=== PATIENT | male | born 1945 | race Caucasian/White ===

== ENCOUNTER 2017-05-08 19:30 | Outpatient (CLI) | payer MEDICARE | END 2017-05-08 19:31 | disposition home or self-care (01) | LOC: SLEEPLAB 19:30 | PROVIDERS: ATTEND Family Medicine | DX: G47.33 Obstructive sleep apnea (adult) (pediatric) (principal); R06.83 Snoring; I11.0 Hypertensive heart disease with heart failure; I50.9 Heart failure, unspecified; E11.9 Type 2 diabetes mellitus without complications; R51 Headache; R53.83 Other fatigue | CPT/HCPCS: 95811 ==

== ENCOUNTER 2017-08-09 09:43 | Outpatient (CLI) | payer MEDICARE ==
[~2017-08-09 09:43] MED LIST: Gadobenate Dimeglumine 529 MG/1 ML (20ML VIAL) ONE
--- NOTE | 2017-08-09 14:12 | MRI ---
MRI LUMBAR SPINE WITH AND WITHOUT CONTRAST: 08/09/2017 HISTORY: Prior lumbar spine surgery. Chronic back pain. COMPARISON: 03/13/2016 TECHNIQUE: Multiplanar, multisequence MR imaging of the lumbar spine provided with and without contrast. FINDINGS: The sagittal STIR imaging demonstrates no focal area of osseous marrow edema. Lumbar vertebral body height and alignment are normal. Assuming five lumbar type vertebral bodies, the conus medullaris terminates at L1. T12-L1: Intervertebral disk height and signal intensity are within normal limits. There is mild pedro ateral facet hypertrophy. No significant central canal or neural foraminal stenosis. L1-L2: Mild bilateral facet hypertrophy and hypertrophy of the ligamentum flavum, right greater than left. Mild anterior osteophyte formation noted on the left. Intervertebral disk height and signal intensity are within normal limits with no significant central canal or neural foraminal stenosis. L2-L3: Mild bilateral facet hypertrophy. Anterior osteophyte formation noted. No significant centr al canal or neural foraminal stenosis. L3-L4: Mild bilateral facet hypertrophy. Mild anterior osteophyte formation. There is disk desicca tion and minimal disk bulge with no central canal or neural foraminal stenosis. L4-L5: There is mild disk bulge. There are postoperative laminectomy changes. There is mild disk s pace narrowing and disk desiccation with facet hypertrophy noted, right greater than left. There is moderate/severe right neural foraminal stenosis. There is mild left neural foraminal stenosis. No c entral canal stenosis. L5-S1: Prominent bilateral facet hypertrophy present, right greater than left. Mild-moderate bilate ral neural foraminal stenosis. No central canal stenosis. The imaged retroperitoneal structures appear grossly unremarkable. There is ectasia of the infrarenal abdominal aorta with no evidence for aneurysm. The post contrast imaging demonstrates mild enhancement involving the soft tissues posterior to the thecal sac, at the L4-L5 level, suggesting postoperative scar. No abnormal enhancement is seen involving the nerve root s of the cauda equina, the intervertebral disks, or the imaged osseous structures. No significant interval change noted when compared to the 03/13/2016 exam. There is enhancement of the facet joint on the right, at L4-L5, evidence of degenerative enhancement. This is also stable when compared to the 03/13/2016 exam. IMPRESSION: Multilevel degenerative changes noted within the lumbar spine. The most significant finding is neura l foraminal stenosis at L4-L5 and at L5-S1, right greater than left, most significant at the L4-L5 le griselda. POS: ABHISHEK
== END 2017-08-09 09:44 | disposition home or self-care (01) ==
LOC: SCSMRI 09:43
PROVIDERS: ATTEND Family Medicine
DX: M54.5 Low back pain (principal); M47.896 Other spondylosis, lumbar region; M99.53 Intervertebral disc stenosis of neural canal of lumbar region; M99.54 Intervertebral disc stenosis of neural canal of sacral region
CPT/HCPCS: 72158; A9579

== ENCOUNTER 2018-08-14 00:04 | Outpatient (CLI) | payer MEDICARE ==
[2018-08-14 12:16] LABS: Mean Corpuscular HGB CONC 33.6 g/dL (32.0-36.0); Mean Corpuscular Hemoglobin 34.5 pg (27.0-31.0); Mean Platelet Volume 8.6 fL (7.4-10.4); Platelet Count 269 thou/uL (130-400); RBC Distribution Width 13.3 % (11.5-14.5); Red Blood Cell (RBC) Count 3.77 mill/uL (4.70-6.10); White Blood Cell (WBC) Count 9.5 thou/uL (4.8-10.8)
[2018-08-14 12:38] LABS: Anion Gap 13 mmol/L (10-20); BUN (Urea Nitrogen) 26 mg/dL (8.4-25.7); Calc. Creatinine Clearance 0 mL/min (70-130); Calcium 9.1 mg/dL (7.8-10.44); Carbon Dioxide 23 mmol/L (23-31); Chloride 106 mmol/L (98-107); Estimated GFR-MDRD 45; Glucose 178 mg/dL (83-110); Potassium 3.9 mmol/L (3.5-5.1); Sodium 138 mmol/L (136-145)
== END 2018-08-14 00:05 | disposition home or self-care (01) ==
LOC: LABBT 00:04
PROVIDERS: ATTEND Neurological Surgery
DX: Z01.818 Encounter for other preprocedural examination (principal); M48.061 Spinal stenosis, lumbar region without neurogenic claudication
CPT/HCPCS: 80048; 85027; 93005; 93010

== ENCOUNTER 2018-08-14 08:10 | Outpatient (CLI) | payer MEDICARE ==
--- NOTE | 2018-08-14 13:59 | MRI ---
MRI LUMBAR SPINE WITH AND WITHOUT CONTRAST: Technique: Multiplanar, multisequential imaging of the lumbar spine obtained. Post contrast images we re obtained with IV MultiHance administration. Indication: Lumbar spinal stenosis. Back pain. Comparison: MRI lumbar spine 08-09-17. FINDINGS: Lumbar vertebrae maintain normal body height and alignment. The disc spaces are preserved although degenerative disc changes are seen at the L5-S1 level. Post-op erative changes are noted posteriorly at L4-5 and L5-S1 with laminectomy change. Post-operative signa l changes are seen posteriorly in the operative bed at these levels, stable from the prior study. L1-2: No significant disc bulge or protrusion. Mild facet hypertrophy without significant canal or fo raminal stenosis. L2-3: Mild disc bulge. Facet hypertrophy is more prominent. Mild central canal stenosis, unchanged fr om prior exam. L3-4: Mild disc bulge. Facet hypertrophy. Mild central canal stenosis, stable from prior exam. L4-5: Mild disc bulge. Prominent facet hypertrophy. Mild central canal stenosis. Bilateral foraminal stenosis secondary to diffuse disc bulge and facet hypertrophy. L5-S1: Minimal disc bulge with facet hypertrophy and post op changes. Mild central canal stenosis. Bi lateral foraminal stenosis. Findings appear stable from prior exam. IMPRESSION: Mild central canal stenosis and bilateral foraminal stenosis at L4-5 and L5-S1 again noted as describ ed above. POS: ABHISHEK
== END 2018-08-14 08:11 | disposition home or self-care (01) ==
LOC: SCSMRI 08:10
PROVIDERS: ATTEND Neurological Surgery
DX: M48.061 Spinal stenosis, lumbar region without neurogenic claudication (principal); M48.07 Spinal stenosis, lumbosacral region
CPT/HCPCS: 72158; 80048; 82565; 85027; 93005; 93010

== ENCOUNTER 2018-08-14 10:00 | Inpatient (IN) | payer MEDICARE ==
[2018-08-15] MEDS ORDERED: Sodium Chloride 0.9% 10 ML ONE (06:30)
[2018-08-15] MEDS ORDERED: Clindamycin/D5W 900 mg/50 ml Premix Bag ONE (06:33)
[2018-08-15] MEDS ORDERED: Levofloxacin 500 mg/D5W 100 ml Premix Bag ONE (06:33)
[2018-08-15] MEDS ORDERED: Fentanyl 100 MCG/2 ML VIAL ONE ×3 (07:00→09:49)
[2018-08-15] MEDS ORDERED: Meperidine HCl/PF 25 MG/ML VIAL SLOW IVP PRN (09:26)
[2018-08-15] MEDS ORDERED: Non-Formulary Medication 1 EACH PO PRN (09:26)
[2018-08-15] MEDS ORDERED: Morphine 4 MG/ML VIAL SLOW IVP PRN ×2 (09:26→09:42)
[2018-08-15] MEDS ORDERED: Ondansetron HCl/PF 4 MG/2 ML Vial IVP PRN (09:26)
[2018-08-15] MEDS ORDERED: Promethazine HCl 25 MG/ML VIAL IM/IV PRN (09:26)
--- NOTE | 2018-08-15 09:33 | OP ---
DATE OF PROCEDURE: 08/15/2018 ARABIC TRANSLATOR: Osmin Blackwood PA-C PROCEDURES PERFORMED: Right L4-L5 and L5-S1 laminectomy, facetectomy, foraminotomy, interbody arthrodesis, intervertebral biomechanical device, local morselized autograft, demineralized bone matrix, posterolateral arthrodesis, pedicle screw instrumentation L4-L5 and L5-S1. DESCRIPTION OF PROCEDURE: The patient was brought to the operating room and intubated. He was rolled in a prone position on gel-filled chest rolls. An incision was reopened and extended exposing L4 through S1. We performed right-sided laminectomy, facetectomy, and foraminotomy, completely decompressing the neural elements on the right side. We next incised the intervertebral disk, completely removed the disk and decorticated the bony endplates for the purpose of arthrodesis. An appropriate-sized intervertebral biomechanical PEEK device was brought into the and filled with demineralized bone matrix and local morselized autograft, and tapped in place securely at L4-L5 and L5-S1. Next, pedicle screws were placed at L4, L5, and S1 on the right and the level was confirmed by x-ray and the placement was confirmed by x-ray. The wound was extensively irrigated and maximum hemostasis was secured. The anya was secured between the screws, connected by nuts, which were final tightened. A combination of demineralized bone matrix and local morselized autograft was laid over the left lamina and posterolateral surfaces for the purpose of arthrodesis. Vancomycin powder was applied and the wound was closed in anatomic layers. Job ID: [id number]
[2018-08-15] MEDS ORDERED: diphenhydrAMINE 50 MG/ML VIAL IVP PRN (09:42)
[2018-08-15] MEDS ORDERED: Ondansetron PF 4 MG/2 ML Vial IM PRN (09:42)
[2018-08-15] MEDS ORDERED: Promethazine 25 MG TAB PO PRN (09:42)
[2018-08-15] MEDS ORDERED: Mag-Al 1200 mg/1200 mg/30 ML UDCUP PO PRN (09:42)
[2018-08-15] MEDS ORDERED: diphenhydrAMINE 25 MG CAP PO PRN (09:42)
[2018-08-15] MEDS ORDERED: Milk Of Magnesia 30 ML UDCUP PO PRN (09:42)
[2018-08-15] MEDS ORDERED: traMADol HCl 50 MG TAB PO PRN (09:42)
[2018-08-15] MEDS ORDERED: Promethazine HCl 25 MG/ML VIAL IM PRN (09:42)
[2018-08-15] MEDS ORDERED: Acetaminophen/Codeine 30-300mg Tablet PO PRN (09:42)
[2018-08-15] MEDS ORDERED: Promethazine HCl 12.5 MG SUPP PR PRN (09:42)
[2018-08-15] MEDS ORDERED: Morphine 2 MG/ML SYRINGE SLOW IVP PRN (09:43)
[2018-08-15] MEDS ORDERED: Colchicine 0.6 MG TAB PO PRN (09:47)
[2018-08-15] MEDS ORDERED: Oxymetazoline HCl 0.05% ( 15 ML ) NASAL PRN (09:53)
[2018-08-15] MEDS ORDERED: predniSONE 20 MG TAB PO SCH (10:00)
[2018-08-15] MEDS ORDERED: Ondansetron PF 4 MG/2 ML Vial ONE (10:25)
[2018-08-15] MEDS ORDERED: Dexamethasone 20 MG/5 ML VIAL ONE (10:25)
[2018-08-15] MEDS ORDERED: Lidocaine 1% PF 5 ML VIAL ONE (10:25)
[2018-08-15] MEDS ORDERED: Rocuronium Bromide 10 MG/ML (10ML VIAL) ONE (10:25)
[2018-08-15] MEDS ORDERED: PHENYLEPHRINE-NS 100 MCG/ML 10 ML SYRINGE ONE (10:25)
[2018-08-15] MEDS ORDERED: Glycopyrrolate 0.2 MG/ML 5 ML SYRINGE ONE (10:25)
[2018-08-15] MEDS ORDERED: PROPOFOL 200 MG/20 ML VIAL ONE (10:25)
[2018-08-15] MEDS ORDERED: ePHEDrine 50 MG/ML VIAL ONE (10:25)
[2018-08-15] MEDS: Clindamycin/D5W 900 MG in Premix Bag 1 BAG IVPB SCH ×2 (13:14→20:44)
[2018-08-15] MEDS: tiZANidine HCl 4 MG TAB PO PRN ×2 (13:14→20:41)
[2018-08-15] MEDS: Acetaminophen/Codeine 30-300mg Tablet PO PRN ×3 (13:14→20:41)
[2018-08-15] MEDS ORDERED: Torsemide 20 MG TAB PO SCH (13:30)
[2018-08-15] MEDS: traMADol HCl 50 MG TAB PO PRN (15:00)
[2018-08-15] MEDS: Sodium Chloride 0.9% 1,000 ML IV SCH ×2 (15:31→20:44)
[2018-08-15 15:40] VITALS: BMI 35.9
[2018-08-15] MEDS ORDERED: Metoprolol Tartrate 5 MG/5 ML VIAL ONE (20:36)
[2018-08-15] MEDS ORDERED: Azelastine 137 MCG/Spray 30 ML NS SCH (21:00)
[2018-08-15] MEDS ORDERED: Rosuvastatin 10 MG TAB PO SCH (21:00)
[2018-08-16] MEDS: traMADol HCl 50 MG TAB PO PRN (06:49)
[2018-08-16] MEDS ORDERED: Spironolactone 25 MG TAB PO SCH (08:00)
[2018-08-16 08:26] VITALS: BP 122/86; TEMP 98.1
[2018-08-16] MEDS ORDERED: Alogliptin 25 MG TAB PO SCH (09:00)
[2018-08-16] MEDS ORDERED: Torsemide 20 MG TAB PO SCH ×2 (09:00→13:00)
[2018-08-16] MEDS ORDERED: Allopurinol 300 MG TAB PO SCH (09:00)
--- NOTE | 2018-08-16 10:19 | DIS ---
DATE OF ADMISSION: 08/15/2018 DATE OF DISCHARGE: 08/16/2018 HOSPITAL COURSE: The patient is a 73-year-old male status post L4-L5 and L5-S1 decompression and fusion. Following the surgery, he was transitioned to the [facility] floor, where his pain has been well-controlled with p.o. medications, he is tolerating regular diet, and he is voiding appropriately. He has been ambulating without any difficulty throughout the department. He has had small amount of incisional drainage, which required overnight dressing changes. He is awake, alert, in no acute distress. He has free active range of motion in all extremities. No focal motor weakness. No reflex asymmetry. There is a small amount of light red blood on the dressing pad. Anticipate incisional drainage will improve over the next few days. I have advised b.i.d. dressing changes as well as keep the incision clean and dry. We will plan to dismiss the patient to home. I have discussed home care precautions, and the patient has been provided prescriptions. Job ID: [id number]
[2018-08-16] MEDS: Acetaminophen/Codeine 30-300mg Tablet PO PRN (10:28)
== END 2018-08-16 11:00 | disposition home or self-care (01) | DRG 460 ==
LOC: SURG A 08-15 05:50 → EDSTATUS 08-15 10:00 → SURG A 08-15 10:01
PROVIDERS: ADMIT Neurological Surgery; ATTEND Neurological Surgery
PROC: 0SG00AJ Fusion of Lumbar Vertebral Joint with Interbody Fusion Device, Posterior Approach, Anterior Column, Open Approach (ICD-10-PCS; principal; 2018-08-15)
PROC: 0SG30AJ Fusion of Lumbosacral Joint with Interbody Fusion Device, Posterior Approach, Anterior Column, Open Approach (ICD-10-PCS; 2018-08-15)
DX: M47.897 Other spondylosis, lumbosacral region (principal); M47.896 Other spondylosis, lumbar region; M48.061 Spinal stenosis, lumbar region without neurogenic claudication; I25.10 Atherosclerotic heart disease of native coronary artery without angina pectoris; E11.9 Type 2 diabetes mellitus without complications; I10 Essential (primary) hypertension; E78.5 Hyperlipidemia, unspecified; K21.9 Gastro-esophageal reflux disease without esophagitis; Z95.1 Presence of aortocoronary bypass graft; Z79.02 Long term (current) use of antithrombotics/antiplatelets; Z79.82 Long term (current) use of aspirin; Z88.0 Allergy status to penicillin
CPT/HCPCS: 72158; 76000; 80048; 82565; 85027; 93005; C1713; C1768; J0131; J1956; J2270; J3010; J3370; J3490

== ENCOUNTER 2018-08-27 10:17 | Outpatient (CLI) | payer MEDICARE ==
--- NOTE | 2018-08-27 12:19 | CT ---
Exam: Lumbar spine CT without contrast HISTORY: Degenerative disc disease. Degenerative lumbar spinal stenosis. Lumbar fusion August 16, 2018 COMPARISON: None Correlation: MRI lumbar spine 08/14/2018 FINDINGS: 5 lumbar type vertebral bodies. Lumbar spine vertebral body height is maintained. No fracture. Unilat eral right sided transpedicular screw at L4, L5 and S1. No taran hardware lucency. Disc prosthesis at L4-L5 and L5-S1. Laminectomy defect at L4-L5 and L5-S1. Partial right facetectomy at L4 and L5 Visualized lung bases, retroperitoneal structures and solid organs are grossly unremarkable. Nonobstr ucting cortical calcification in the right kidney. Bilaterally no obstructive uropathy Limited evaluation of the contents of the central spinal canal and neural foramina due to technique T10-T11, T11-T12 and T12-L1: No high-grade central canal stenosis or high-grade foraminal narrowing L1-L2: No high-grade central canal stenosis or high-grade foraminal narrowing L2-L3: No high-grade central canal stenosis or high-grade foraminal narrowing L3-L4: Generalized disc bulge, ligament flavum thickening result in mild canal stenosis. Mild bilater al foraminal narrowing. L4-L5: Laminectomy defect along with a right partial facetectomy. Abnormal soft tissue density at the operative site. Limited evaluation the central spinal canal. There may be at least mild to moderate central canal stenosis. Possibility of moderate right foraminal narrowing is raised. There does appea r to be soft tissue attenuation in the right neural foramen. Mild to moderate left foraminal narrowin g. L5-S1: Laminectomy defect and a partial right facetectomy is noted. There are postoperative changes w ith small foci of air attenuation at the level of facetectomy. Findings may represent recent surgery. A well-formed infected fluid collection is not currently seen. There is at least mild central canal stenosis. Abnormal soft tissue attenuation in the right neural foramen. Moderate to severe right neur al foraminal stenosis. There is also moderate to severe left neural foramen on the basis of degenerat juan change. IMPRESSION: 1. Postoperative changes at L4 and L5 compatible with unilateral right-sided transpedicular screws fr om L4 through S1. There are partial right facetectomy at L4 and L5. Increased soft tissue density at the operative site may represent postsurgical change. There is narrowing of the right neural foramen at L4-L5 and L5-S1 which may be due to postoperative change, superimposed upon degenerative changes. 2. Small foci of air attenuation noted at the level of the right partial facetectomy. Postoperative c hanges are suspected. Clinical correlation is essential. A large drainable abscess/infected fluid col lection is not appreciated.
== END 2018-08-27 10:18 | disposition home or self-care (01) ==
LOC: SCSCT 10:17
PROVIDERS: ATTEND Neurological Surgery
DX: M48.061 Spinal stenosis, lumbar region without neurogenic claudication (principal); M47.816 Spondylosis without myelopathy or radiculopathy, lumbar region; M47.817 Spondylosis without myelopathy or radiculopathy, lumbosacral region; M48.07 Spinal stenosis, lumbosacral region; R93.7 Abnormal findings on diagnostic imaging of other parts of musculoskeletal system; Z98.1 Arthrodesis status
CPT/HCPCS: 72131

== ENCOUNTER 2018-09-03 09:01 | Outpatient (CLI) | payer MEDICARE, OTHER ==
--- NOTE | 2018-09-03 09:52 | RAD ---
LUMBAR SPINE SERIES TWO VIEWS: History: Two weeks post op. Low back pain with numbness to right leg. Comparison: 03-13-16 FINDINGS: There has been placement of right unilateral pedicle screws at L4, L5, and S1. Markers of the disc im plants are within the intervening disc levels. Degenerative osteophytes are seen along the course of the spine. There is laminectomy change at L5. Atherosclerotic changes are seen within the aorta. IMPRESSION: Post-operative changes of the spine. POS: TPC
== END 2018-09-03 09:02 | disposition home or self-care (01) ==
LOC: TBSIIMAG 09:01
PROVIDERS: ATTEND Neurological Surgery
DX: M48.061 Spinal stenosis, lumbar region without neurogenic claudication (principal); Z98.890 Other specified postprocedural states
CPT/HCPCS: 72100

== ENCOUNTER 2018-10-15 13:49 | Outpatient (CLI) | payer MEDICARE, OTHER ==
--- NOTE | 2018-10-15 15:33 | RAD ---
LUMBAR SPINE TWO VIEWS: HISTORY: Follow up lumbar fusion. COMPARISON: 09/03/2018 FINDINGS: Unilateral left-sided transpedicular screws are again noted at L4, L5, and S1. No perihardware lucen cy. Stable laminectomy defect at L5. Disk prosthesis at L4-L5 and at L5-S1. Stable atherosclerosis of the aorta. IMPRESSION: Stable lumbar fusion. POS: OFF
== END 2018-10-15 13:50 | disposition home or self-care (01) ==
LOC: TBSIIMAG 13:49
PROVIDERS: ATTEND Neurological Surgery
DX: M51.36 Other intervertebral disc degeneration, lumbar region (principal); Z98.1 Arthrodesis status
CPT/HCPCS: 72100

== ENCOUNTER 2018-10-27 06:56 | Day surgery (SDC) | payer MEDICARE, OTHER ==
[2018-10-24 14:25] VITALS: BMI 34.9
[2018-10-27 07:57] VITALS: BP 91/57; TEMP 97.4
--- NOTE | 2018-10-27 08:44 | RAD ---
XR Myelogram Lumbar Spine History: Lumbar radiculopathy Comparison: Radiograph October 15, 2018 Findings: Patient was brought to the fluoroscopy suite. All questions were answered. Informed consent was obtained. Timeout performed. Patient's back was prepped and draped in normal sterile fashion. 2 mL lidocaine was instilled into th e superficial and deep soft tissues. Using fluoroscopic guidance a 22-gauge spinal needle was used to access the thecal sac at the L3/L4 d isc space. 10 mL of Isovue-200 was instilled within the thecal sac. The patient tolerated the procedure well without complication. Impression: Technically successful fluoroscopically guided lumbar myelogram. Fluoroscopy time: 0.6 minutes. Dose area product: 245.6 mGy meters squared
--- NOTE | 2018-10-27 08:52 | CT ---
CT Lumbar Spine W Con History: M [age] lumbar radiculopathy. Comparison: Lumbar spine CT August 27, 2018 Findings: CT of the lumbar spine performed after the intrathecal administration of contrast. The aortic contour is nonaneurysmal. Mild left sclerotic plaque. No retroperitoneal periaortic adenopathy. No acute fracture of the lumbar spine. The conus medullaris terminates near the inferior endplate of L1. Levels are as follows: L1/L2: Small bilateral subfrontal disc osteophyte complexes. Mild facet arthrosis. No neural foramina l or spinal canal narrowing. L2/L3: Small circumferential disc osteophyte complex. Moderate facet arthrosis. No significant spinal canal narrowing. Mild bilateral neural foraminal narrowing. L3/L4: Mild circumferential disc bulge. Moderate hypertrophic facet changes. Posterior increased epid ural fat. Spinal canal measures 1 cm. Moderate right and mild left neural foraminal narrowing. There does appear to be abutment of the right exiting and traversing nerve root. L4/L5: Unilateral right posterior spinal fusion hardware and partial discectomy change. There is a ce ntral and left lateral recess as well as left foraminal posterior disc osteophyte complex. Moderate left neural foraminal narrowing. Hypertrophic facet degenerative change. There is be scar along the r ight neural foramina. Extensive scar within the right neural foramina causing narrowing. L5/S1: Unilateral right posterior spinal fusion hardware and partial discectomy change. There is scar and granulation tissue filling the right neural foramina. Asymmetric central, left paracentral, subfrontal, and extraforaminal disc osteophyte complexes causes moderate left neural foraminal narrow ing. There is abutment of the left traversing nerve root. Impression: Extensive scar within the right L4/L5 and L5/S1 neural foramina surrounding the exiting n erve roots.
[2018-10-27] MEDS ORDERED: Iopamidol-M 200 41% 20 ML VIAL ONE (10:01)
== END 2018-10-27 09:30 | disposition home or self-care (01) ==
LOC: RAD 06:56
PROVIDERS: ATTEND Neurological Surgery
DX: M54.16 Radiculopathy, lumbar region (principal); I13.0 Hypertensive heart and chronic kidney disease with heart failure and stage 1 through stage 4 chronic kidney disease, or unspecified chronic kidney disease; E11.22 Type 2 diabetes mellitus with diabetic chronic kidney disease; N18.3 Chronic kidney disease, stage 3 (moderate); E03.9 Hypothyroidism, unspecified; I48.91 Unspecified atrial fibrillation; I48.92 Unspecified atrial flutter; Z88.0 Allergy status to penicillin; Z88.6 Allergy status to analgesic agent
CPT/HCPCS: 62304; 72132

== ENCOUNTER 2019-02-12 09:25 | Outpatient (CLI) | payer MEDICARE, OTHER ==
--- NOTE | 2019-02-12 09:49 | RAD ---
XR Lumbar Spine 2 Or 3 View HISTORY: Follow-up surgery COMPARISON: 10/15/2018 study. FINDINGS: Stable postoperative changes are noted with right unilateral pedicle screws at L4, L5 and S 1. Markers of disc implants are within the confines of the disc levels. Laminectomy changes at L5 are noted. Vascular calcifications are present. IMPRESSION: Stable postop and arthritic changes of the spine.
== END 2019-02-12 09:26 | disposition home or self-care (01) ==
LOC: TBSIIMAG 09:25
PROVIDERS: ATTEND Neurological Surgery
DX: M47.26 Other spondylosis with radiculopathy, lumbar region (principal); Z98.890 Other specified postprocedural states
CPT/HCPCS: 72100

== ENCOUNTER 2022-12-14 07:55 | Outpatient (CLI) | payer MEDICARE, OTHER ==
[2022-12-14] MEDS ORDERED: Iopamidol-370 76% 500 ML MDV (1 ML CHARGE) ONE (10:53)
== END 2022-12-14 07:56 | disposition home or self-care (01) ==
LOC: BICCT 07:55
PROVIDERS: ATTEND Family Medicine
DX: R10.31 Right lower quadrant pain (principal); R16.1 Splenomegaly, not elsewhere classified
CPT/HCPCS: 74177; Q9967

== ENCOUNTER 2022-12-28 07:28 | Outpatient (CLI) | payer MEDICARE, OTHER | END 2022-12-28 07:29 | disposition home or self-care (01) | LOC: ULT 07:28 | PROVIDERS: ATTEND Family Medicine | DX: R10.9 Unspecified abdominal pain (principal); K76.0 Fatty (change of) liver, not elsewhere classified; R16.1 Splenomegaly, not elsewhere classified | CPT/HCPCS: 76700 ==

== ENCOUNTER 2023-11-11 14:05 | Inpatient (IN) | payer MEDICARE, OTHER ==
[2023-11-11 16:08] LABS: Bilirubin Negative (Negative); Blood, Urine 1+ (Negative); CAUTI Indications for Culture Alt mental st,lethar; Clarity Clear (Clear); Glucose, Urine (Dipstick) 500 mg/dL (Negative); Ketone, Urine Negative (Negative); Leukocyte Negative Leu/uL (Negative); Nitrite Negative (Negative); Protein, Urine (Dipstick) 200 mg/dL (Neg-Trace); Specific Gravity, Urine 1.012 (1.002-1.036); Squamous Epithelial None Seen HPF (0-3); Urobilinogen Normal mg/dL (Less than 2); WBC/HPF 0-3 HPF (0-3)
[2023-11-11 16:10] LABS: Bacteria/HPF 1+ HPF (None Seen)
[2023-11-11 16:11] LABS: Urine Culture Reflex No No
[2023-11-11 17:01] LABS: #Basophils Less than 0.03 10x3/uL (0.0-0.2); #Eosinphils Less than 0.03 10x3/uL (0.0-0.7); %Basophils 0.1 % (0.0-1.0); %Eosinophils 0.1 % (0.0-10.0); %Monocytes 7.1 % (0.0-10.0); %Neutrophils 85.7 % (42.0-75.0); Hematocrit 27.2 % (42.0-52.0); Hemoglobin 8.7 g/dL (14.0-18.0); Mean Corpuscular Volume 115.7 fL (78.0-98.0); Mean Platelet Volume 10.8 fL (7.4-10.4); Platelet Count 375 10x3/uL (130-400); RBC Distribution Width 16.5 % (11.5-14.5); Red Blood Cell (RBC) Count 2.35 mill/uL (4.70-6.10)
[2023-11-11 17:23] LABS: ALT (SGPT) 27 U/L (8-55); AST (SGOT) 29 U/L (5-34); Albumin 3.1 g/dL (3.4-4.8); Alkaline Phosphatase 102 U/L (40-110); Anion Gap 12 mmol/L (10-20); BUN (Urea Nitrogen) 34 mg/dL (8.4-25.7); Bilirubin, Total 0.7 mg/dL (0.2-1.2); CK (CPK) 84 U/L (30-200); Calc. Creatinine Clearance 0 mL/min (70-130); Calcium 8.3 mg/dL (7.8-10.44); Carbon Dioxide 23 mmol/L (23-31); Chloride 101 mmol/L (98-107); Estimated GFR 35; Globulin 3.3 g/dL (2.4-3.5); Glucose 150 mg/dL (83-110); Magnesium 1.8 mg/dL (1.6-2.6); Protein, Total 6.4 g/dL (5.8-8.1); Sodium 131 mmol/L (136-145)
[2023-11-11 17:30] LABS: Troponin I 0.019 ng/mL (< 0.028)
[2023-11-11] MEDS ORDERED: Dextrose 50% Abboject 50 ML SYRINGE SLOW IVP PRN (18:23)
[2023-11-11] MEDS ORDERED: Glucagon 1 MG/ML KIT IM PRN (18:23)
[2023-11-11] MEDS ORDERED: Senokot S 8.6-50 MG TAB PO PRN (18:23)
[2023-11-11] MEDS ORDERED: Dextrose 5% in Water 1,000 ML IV PRN (18:23)
[2023-11-11] MEDS ORDERED: Ondansetron ODT 4 MG TAB SL PRN (20:00)
[2023-11-11] MEDS ORDERED: Ondansetron PF 4 MG/2 ML Vial IVP PRN (20:00)
[2023-11-11 20:25] LABS: Troponin I 0.019 ng/mL (< 0.028)
[2023-11-11 20:27] VITALS: BMI 32.2
[2023-11-11 23:15] LABS: Troponin I 0.019 ng/mL (< 0.028)
[2023-11-12 05:08] LABS: #Basophils Less than 0.03 10x3/uL (0.0-0.2); #Eosinphils Less than 0.03 10x3/uL (0.0-0.7); %Basophils 0.1 % (0.0-1.0); %Eosinophils 0.1 % (0.0-10.0); %Lymphocytes 5.6 % (21.0-51.0); %Neutrophils 79.7 % (42.0-75.0); Hematocrit 25.5 % (42.0-52.0); Hemoglobin 8.1 g/dL (14.0-18.0); Mean Corpuscular HGB CONC 31.8 g/dL (32.0-36.0); Mean Corpuscular Hemoglobin 36.5 pg (27.0-31.0); Mean Corpuscular Volume 114.9 fL (78.0-98.0); Mean Platelet Volume 10.7 fL (7.4-10.4); Platelet Count 328 10x3/uL (130-400); RBC Distribution Width 16.6 % (11.5-14.5); Red Blood Cell (RBC) Count 2.22 mill/uL (4.70-6.10)
[2023-11-12 05:24] LABS: Anion Gap 16 mmol/L (10-20); BUN (Urea Nitrogen) 28 mg/dL (8.4-25.7); Calc. Creatinine Clearance 59 mL/min (70-130); Calcium 8.4 mg/dL (7.8-10.44); Carbon Dioxide 23 mmol/L (23-31); Chloride 102 mmol/L (98-107); Estimated GFR 41; Glucose 143 mg/dL (83-110); Potassium 4.5 mmol/L (3.5-5.1); Sodium 136 mmol/L (136-145)
[2023-11-12] MEDS ORDERED: Loratadine 10 MG TAB PO PRN (08:47)
[2023-11-12] MEDS: Cyanocobalamin (Vitamin B-12) 1,000 MCG TAB PO SCH (09:16)
[2023-11-12] MEDS: Ascorbic Acid 500 mg Chewable Tablet PO SCH (09:16)
[2023-11-12] MEDS: Pantoprazole DR 40 MG TAB PO SCH (09:17)
[2023-11-12] MEDS: Gabapentin 400 MG CAP PO SCH (09:17)
[2023-11-12] MEDS: Aspirin 81 mg Enteric Coated Tablet PO SCH (09:17)
[2023-11-12] MEDS: Allopurinol 300 MG TAB PO SCH (09:17)
[2023-11-12] MEDS: Empagliflozin 25 MG TAB PO SCH (09:18)
[2023-11-12] MEDS: Alogliptin 6.25 MG TAB PO SCH (09:18)
[2023-11-12] MEDS: Enoxaparin 40 MG (0.4 mL) SYRINGE SC SCH (09:18)
[2023-11-12] MEDS: Cholecalciferol 1,000 UNITS (25 MCG) TAB PO SCH (09:18)
[2023-11-12] MEDS: DULoxetine 60 MG CAP PO SCH (09:18)
[2023-11-12] MEDS: Ferrous Sulfate 325 MG TAB PO SCH (09:19)
[2023-11-12] MEDS: Levothyroxine Sodium 50 MCG TAB PO SCH (11:34)
[2023-11-12] MEDS ORDERED: Lorazepam 1 MG TAB PO SCH (11:45)
[2023-11-12] MEDS: Insulin Regular, Human 100 UNIT/ML 10 ML VIAL SC PRN (12:23)
[2023-11-12] MEDS: Lorazepam 1 MG TAB PO PRN (12:23)
[2023-11-12] MEDS: Tamsulosin HCl 0.4 MG CAP PO SCH (20:27)
[2023-11-13 05:04] LABS: Hemoglobin A1c 6.2 % (4.0-6.0)
[2023-11-13 05:07] LABS: #Basophils Less than 0.03 10x3/uL (0.0-0.2); %Basophils 0.1 % (0.0-1.0); %Lymphocytes 5.7 % (21.0-51.0); %Monocytes 10.1 % (0.0-10.0); %Neutrophils 76.9 % (42.0-75.0); ALT (SGPT) 21 U/L (8-55); AST (SGOT) 24 U/L (5-34); Albumin 2.9 g/dL (3.4-4.8); Alkaline Phosphatase 93 U/L (40-110); Bilirubin, Direct 0.2 mg/dL (0.1-0.3); Bilirubin, Total 0.4 mg/dL (0.2-1.2); Hematocrit 27.5 % (42.0-52.0); Hemoglobin 8.9 g/dL (14.0-18.0); Mean Corpuscular HGB CONC 32.4 g/dL (32.0-36.0); Mean Corpuscular Hemoglobin 36.9 pg (27.0-31.0); Mean Corpuscular Volume 114.1 fL (78.0-98.0); Mean Platelet Volume 10.7 fL (7.4-10.4); Platelet Count 352 10x3/uL (130-400); Protein, Total 6.1 g/dL (5.8-8.1); RBC Distribution Width 16.1 % (11.5-14.5); Red Blood Cell (RBC) Count 2.41 mill/uL (4.70-6.10)
[2023-11-13 05:11] LABS: Anion Gap 14 mmol/L (10-20); BUN (Urea Nitrogen) 27 mg/dL (8.4-25.7); Calc. Creatinine Clearance 64 mL/min (70-130); Calcium 9.1 mg/dL (7.8-10.44); Carbon Dioxide 21 mmol/L (23-31); Chloride 103 mmol/L (98-107); Estimated GFR 45; Glucose 143 mg/dL (83-110); Iron 45 ug/dL (65-175); Iron Binding Capacity, Total 183 mcg/dL (261-462); Potassium 4.4 mmol/L (3.5-5.1); Sodium 134 mmol/L (136-145)
[2023-11-13] MEDS: Levothyroxine Sodium 50 MCG TAB PO SCH (05:49)
[2023-11-13] MEDS ORDERED: Lidocaine 1% w/Epinephrine 1:100K 20 ML VIAL ONE (07:13)
[2023-11-13] MEDS: Ferrous Sulfate 325 MG TAB PO SCH (08:37)
[2023-11-13] MEDS ORDERED: Torsemide 20 MG TAB PO SCH (09:00)
[2023-11-13] MEDS: Acetaminophen 325 MG TAB PO PRN (23:56)
[2023-11-14 05:04] LABS: Hematocrit 27.3 % (42.0-52.0); Hemoglobin 8.7 g/dL (14.0-18.0); Mean Corpuscular HGB CONC 31.9 g/dL (32.0-36.0); Mean Corpuscular Hemoglobin 36.7 pg (27.0-31.0); Mean Corpuscular Volume 115.2 fL (78.0-98.0); Mean Platelet Volume 10.8 fL (7.4-10.4); Platelet Count 346 10x3/uL (130-400); Red Blood Cell (RBC) Count 2.37 mill/uL (4.70-6.10)
[2023-11-14 05:25] LABS: Anion Gap 14 mmol/L (10-20); BUN (Urea Nitrogen) 31 mg/dL (8.4-25.7); Calc. Creatinine Clearance 55 mL/min (70-130); Carbon Dioxide 23 mmol/L (23-31); Chloride 102 mmol/L (98-107); Estimated GFR 38; Glucose 134 mg/dL (83-110); Magnesium 2.1 mg/dL (1.6-2.6); Potassium 4.7 mmol/L (3.5-5.1); Sodium 134 mmol/L (136-145)
[2023-11-14 05:47] LABS: Anisocytosis MODERATE=16-30 cells HPF (0-5); Band 31 % (5-11); Eosinophils 1 % (0-10); Large Platelets 4.8 % (0-5); Lymphocytes 6 % (21-51); Macrocytosis MODERATE=16-30 cells HPF (0-5); Monocytes 15 % (0-10); Neutrophil 47 % (42-75); Ovalocytes SLIGHT = 2-5 cells HPF (0-1); Platelet Adequacy Comment Platelets Normal; Polychromasia MODERATE = 3-4 cells HPF (0-2); Smudge Cells 1.9 %; Tear Drops SLIGHT = 2-5 cells HPF (0-1)
[2023-11-14] MEDS: Loratadine 10 MG TAB PO SCH (08:42)
[2023-11-14] MEDS: Fluticasone Propionate Nasal Spray 16 gm Bottle NASAL SCH (08:42)
[2023-11-14] MEDS: Enoxaparin 40 MG (0.4 mL) SYRINGE SC SCH (08:45)
[2023-11-14] MEDS ORDERED: Phenol 177 ML BOT PO PRN (14:07)
[2023-11-14] MEDS: Benzocaine/Menthol 1 LOZ LOZ PO PRN (14:45)
[2023-11-14 14:53] LABS: Vitamin B12 Greater than 2000 pg/mL (211-911)
[2023-11-15 05:32] LABS: Anion Gap 15 mmol/L (10-20); BUN (Urea Nitrogen) 29 mg/dL (8.4-25.7); Calc. Creatinine Clearance 57 mL/min (70-130); Calcium 9.2 mg/dL (7.8-10.44); Carbon Dioxide 23 mmol/L (23-31); Chloride 103 mmol/L (98-107); Estimated GFR 41; Glucose 129 mg/dL (83-110); Magnesium 2.1 mg/dL (1.6-2.6); Potassium 4.8 mmol/L (3.5-5.1); Sodium 136 mmol/L (136-145)
[2023-11-15 06:59] LABS: Hematocrit 28.6 % (42.0-52.0); Hemoglobin 9.2 g/dL (14.0-18.0); Mean Corpuscular HGB CONC 32.2 g/dL (32.0-36.0); Mean Corpuscular Hemoglobin 36.4 pg (27.0-31.0); Mean Platelet Volume 10.8 fL (7.4-10.4); Platelet Count 365 10x3/uL (130-400); RBC Distribution Width 15.9 % (11.5-14.5); Red Blood Cell (RBC) Count 2.53 mill/uL (4.70-6.10)
[2023-11-15 10:57] LABS: Band 13 % (5-11); Eosinophils 1 % (0-10); Giant Platelets SLIGHT HPF (0-5); Lymphocytes 11 % (21-51); Monocytes 15 % (0-10); Neutrophil 59 % (42-75); Plasma Cells 0 % (0-0); Platelet Adequacy Comment Appears Adequate; Platelet Clumps SLIGHT; Schistocytes SLIGHT = 2-5 cells (100X) (0-1/hpf); Total Cell Count 100
[2023-11-15 11:16] VITALS: BP 92/52; TEMP 98.3
== END 2023-11-15 11:51 | disposition home or self-care (01) | DRG 312 ==
LOC: ERS 14:05 → 2NO 17:56
PROVIDERS: ADMIT Family Medicine; ATTEND Family Medicine
PROC: 4A00X4Z Measurement of Central Nervous Electrical Activity, External Approach (ICD-10-PCS; principal; 2023-11-12)
PROC: 4A12X4Z Monitoring of Cardiac Electrical Activity, External Approach (ICD-10-PCS; 2023-11-15)
DX: R55 Syncope and collapse (principal); G93.41 Metabolic encephalopathy; I50.22 Chronic systolic (congestive) heart failure; I47.20 Ventricular tachycardia, unspecified; I25.10 Atherosclerotic heart disease of native coronary artery without angina pectoris; N18.30 Chronic kidney disease, stage 3 unspecified; D63.1 Anemia in chronic kidney disease; Z96.659 Presence of unspecified artificial knee joint; N40.0 Benign prostatic hyperplasia without lower urinary tract symptoms; T44.6X5A Adverse effect of alpha-adrenoreceptor antagonists, initial encounter; Z88.0 Allergy status to penicillin; Z79.899 Other long term (current) drug therapy; Z79.890 Hormone replacement therapy; Z79.82 Long term (current) use of aspirin; Z90.49 Acquired absence of other specified parts of digestive tract; Z95.1 Presence of aortocoronary bypass graft
CPT/HCPCS: 33285; 36415; 36416; 70450; 70551; 71045; 76770; 80048; 80053; 80076; 81001; 82550; 82607; 82728; 83036; 83540; 83550; 83605; 83735; 83880; 84484; 85025; 85046; 93005; 93010; 93880; 95700; 95712; 95819; J1650; J1815

== ENCOUNTER 2024-02-13 13:46 | Outpatient (CLI) | payer MEDICARE, OTHER ==
[2024-02-13 14:22] LABS: Hematocrit 31.9 % (42.0-52.0); Hemoglobin 10.3 g/dL (14.0-18.0); Mean Corpuscular HGB CONC 32.3 g/dL (32.0-36.0); Mean Corpuscular Hemoglobin 36.4 pg (27.0-31.0); Mean Corpuscular Volume 112.7 fL (78.0-98.0); Mean Platelet Volume 11.1 fL (7.4-10.4); Platelet Count 317 10x3/uL (130-400); RBC Distribution Width 17.1 % (11.5-14.5); Red Blood Cell (RBC) Count 2.83 mill/uL (4.70-6.10)
[2024-02-13 14:37] LABS: Anion Gap 11 mmol/L (10-20); BUN (Urea Nitrogen) 26 mg/dL (8.4-25.7); Calc. Creatinine Clearance 0 mL/min (70-130); Calcium 8.2 mg/dL (7.8-10.44); Carbon Dioxide 25 mmol/L (23-31); Chloride 102 mmol/L (98-107); Estimated GFR 33; Glucose 139 mg/dL (83-110); INR-International Normal Ratio 1.3; Potassium 4.2 mmol/L (3.5-5.1); Prothrombin Time 16.5 sec (12.0-14.7); Sodium 134 mmol/L (136-145)
== END 2024-02-13 13:47 | disposition home or self-care (01) ==
LOC: LABBT 13:46
PROVIDERS: ATTEND Internal Medicine Cardiovascular Disease
DX: Z01.812 Encounter for preprocedural laboratory examination (principal); I47.20 Ventricular tachycardia, unspecified; I50.22 Chronic systolic (congestive) heart failure; I42.8 Other cardiomyopathies
CPT/HCPCS: 80048; 85027; 85610

== ENCOUNTER 2024-04-10 11:52 | Outpatient (CLI) | payer MEDICARE, OTHER | END 2024-04-10 11:53 | disposition home or self-care (01) | LOC: SCSRAD 11:52 | PROVIDERS: ATTEND Family Medicine | DX: R05.9 Cough, unspecified (principal) | CPT/HCPCS: 71046 ==

== ENCOUNTER 2024-04-21 14:11 | Outpatient (CLI) | payer MEDICARE, OTHER | END 2024-04-21 14:12 | disposition home or self-care (01) | LOC: SCSRAD 14:11 | PROVIDERS: ATTEND Family Medicine | DX: J20.9 Acute bronchitis, unspecified (principal); I51.7 Cardiomegaly | CPT/HCPCS: 71046 ==

== ENCOUNTER 2024-06-16 18:57 | Inpatient (IN) | payer MEDICARE, OTHER ==
[~2024-06-16 18:57] MED LIST changes: -Gadobenate Dimeglumine 529 MG/1 ML (20ML VIAL) ONE; +Iopamidol-370 76% 500 ML MDV (1 ML CHARGE) ONE
[2024-06-16 21:15] LABS: Bacteria/HPF None Seen HPF (None Seen); Bilirubin Negative (Negative); Blood, Urine 2+ (Negative); CAUTI Indications for Culture Alt mental st,lethar; Clarity Clear (Clear); Glucose, Urine (Dipstick) 500 mg/dL (Negative); Ketone, Urine Negative (Negative); Leukocyte Negative Leu/uL (Negative); Nitrite Negative (Negative); Protein, Urine (Dipstick) 300 mg/dL (Neg-Trace); RBC/HPF 0-3 HPF (0-3); Specific Gravity, Urine 1.015 (1.002-1.036); Squamous Epithelial None Seen HPF (0-3); Urobilinogen Normal mg/dL (Less than 2); WBC/HPF 0-3 HPF (0-3); pH, Urine 6.5 (5.0-9.0)
[2024-06-16 21:18] LABS: Urine Culture Reflex No No
[2024-06-16] MEDS ORDERED: Cefepime 2 GM VIAL ONE (21:24)
[2024-06-16] MEDS ORDERED: Sodium Chloride 0.9% 100 ML ONE (21:24)
[2024-06-16] MEDS ORDERED: Acetaminophen 500 MG TAB ONE (21:24)
[2024-06-16 21:36] LABS: #Basophils Less than 0.03 10x3/uL (0.0-0.2); #Eosinophils Less than 0.03 10x3/uL (0.0-0.7); %Basophils 0.1 % (0.0-1.0); %Lymphocytes 3.3 % (21.0-51.0); %Neutrophils 85.2 % (42.0-75.0); Hematocrit 25.5 % (42.0-52.0); Hemoglobin 8.2 g/dL (14.0-18.0); Mean Corpuscular HGB CONC 32.2 g/dL (32.0-36.0); Mean Corpuscular Hemoglobin 36.6 pg (27.0-31.0); Mean Corpuscular Volume 113.8 fL (78.0-98.0); Mean Platelet Volume 11.3 fL (7.4-10.4); Platelet Count 319 10x3/uL (130-400); RBC Distribution Width 17.2 % (11.5-14.5); Red Blood Cell (RBC) Count 2.24 mill/uL (4.70-6.10)
[2024-06-16 21:45] LABS: Lipase 38 U/L (8-78); Magnesium 1.8 mg/dL (1.6-2.6)
[2024-06-16 21:47] LABS: ALT (SGPT) 13 U/L (Less than 45); AST (SGOT) 43 U/L (11-34); Albumin 3.1 g/dL (3.1-4.5); Alkaline Phosphatase 78 U/L (40-110); Anion Gap 14 mmol/L (10-20); BUN (Urea Nitrogen) 34 mg/dL (8.4-25.7); Bilirubin, Total 0.7 mg/dL (0.3-1.2); Calc. Creatinine Clearance 0 mL/min (70-130); Calcium 8.3 mg/dL (7.8-10.44); Carbon Dioxide 23 mmol/L (23-31); Chloride 101 mmol/L (98-107); Estimated GFR 31; Globulin 3.9 g/dL (2.4-3.5); Glucose 152 mg/dL (83-110); Potassium 4.5 mmol/L (3.5-5.1); Sodium 133 mmol/L (136-145)
[2024-06-16 21:49] LABS: INR-International Normal Ratio 1.5; Prothrombin Time 18.3 sec (12.0-14.7)
[2024-06-16 21:50] LABS: PTT 44.2 sec (22.9-36.1)
[2024-06-16 21:51] LABS: Troponin I 0.085 ng/mL (< 0.028)
[2024-06-16] MEDS ORDERED: Vancomycin (BATCH) 2 GM/500 ML BAG ONE (21:55)
[2024-06-17] MEDS ORDERED: Ondansetron PF 4 MG/2 ML Vial IVP PRN (00:41)
[2024-06-17] MEDS ORDERED: Acetaminophen 325 MG TAB PO PRN (00:41)
[2024-06-17] MEDS: Vancomycin (BATCH) 2 GM in Premix 1 BAG IVPB SCH (00:48)
[2024-06-17 05:00] LABS: Troponin I 0.085 ng/mL (< 0.028)
[2024-06-17 08:18] LABS: Anion Gap 13 mmol/L (10-20); BUN (Urea Nitrogen) 31 mg/dL (8.4-25.7); Calc. Creatinine Clearance 45 mL/min (70-130); Calcium 8.3 mg/dL (7.8-10.44); Carbon Dioxide 22 mmol/L (23-31); Chloride 102 mmol/L (98-107); Estimated GFR 36; Glucose 135 mg/dL (83-110); Sodium 133 mmol/L (136-145)
[2024-06-17 08:20] LABS: Troponin I 0.056 ng/mL (< 0.028)
[2024-06-17 08:48] LABS: #Basophils Less than 0.03 10x3/uL (0.0-0.2); %Eosinophils 0.4 % (0.0-10.0); %Lymphocytes 4.7 % (21.0-51.0); %Monocytes 15.5 % (0.0-10.0); %Neutrophils 77.7 % (42.0-75.0); Hematocrit 25.6 % (42.0-52.0); Hemoglobin 8.2 g/dL (14.0-18.0); Mean Corpuscular Hemoglobin 36.3 pg (27.0-31.0); Mean Corpuscular Volume 113.3 fL (78.0-98.0); Mean Platelet Volume 11.5 fL (7.4-10.4); Platelet Count 261 10x3/uL (130-400); RBC Distribution Width 17.2 % (11.5-14.5); Red Blood Cell (RBC) Count 2.26 mill/uL (4.70-6.10)
[2024-06-17] MEDS ORDERED: Heparin 5,000 UNITS/ML VIAL ONE (08:55)
[2024-06-17] MEDS ORDERED: Cefepime 1 GM VIAL ONE (08:55)
[2024-06-17] MEDS ORDERED: Sodium Chloride 0.9% 100 ML ONE (08:58)
[2024-06-17] MEDS: Cefepime 1 GM in Sodium Chloride 0.9% 100 ML IVPB SCH (09:02)
[2024-06-17] MEDS: Heparin 5,000 UNITS/ML VIAL SC SCH (09:03)
[2024-06-17] MEDS: VANCOMYCIN 1.25 GM/250 ML BAG 1.25 GM in Premix 1 BAG IVPB SCH (22:46)
[2024-06-18 05:45] VITALS: BMI 29.8
[2024-06-18 06:09] LABS: #Basophils Less than 0.03 10x3/uL (0.0-0.2); %Eosinophils 1.2 % (0.0-10.0); %Lymphocytes 7.5 % (21.0-51.0); %Monocytes 9.9 % (0.0-10.0); Hematocrit 25.3 % (42.0-52.0); Hemoglobin 8.1 g/dL (14.0-18.0); Mean Corpuscular Hemoglobin 36.2 pg (27.0-31.0); Mean Corpuscular Volume 112.9 fL (78.0-98.0); Mean Platelet Volume 10.9 fL (7.4-10.4); Platelet Count 295 10x3/uL (130-400); Red Blood Cell (RBC) Count 2.24 mill/uL (4.70-6.10)
[2024-06-18 06:24] LABS: Anion Gap 14 mmol/L (10-20); BUN (Urea Nitrogen) 27 mg/dL (8.4-25.7); Calc. Creatinine Clearance 51 mL/min (70-130); Calcium 8.2 mg/dL (7.8-10.44); Carbon Dioxide 21 mmol/L (23-31); Chloride 104 mmol/L (98-107); Estimated GFR 38; Glucose 131 mg/dL (83-110); Potassium 4.1 mmol/L (3.5-5.1); Sodium 135 mmol/L (136-145)
[2024-06-18 06:28] LABS: Vancomycin, Random 19.5 ug/mL (See Comment)
[2024-06-18 06:43] LABS: Anisocytosis SLIGHT = 6-15 cells HPF (0-5); Macrocytosis SLIGHT = 6-15 cells HPF (0-5); Platelet Adequacy Comment Platelets Normal; Polychromasia SLIGHT = 2-3 cells HPF (0-2); Tear Drops SLIGHT = 2-5 cells HPF (0-1)
[2024-06-18] MEDS: Empagliflozin 10 MG TAB PO SCH (09:28)
[2024-06-18] MEDS: Gabapentin 400 MG CAP PO SCH ×2 (17:08→21:13)
[2024-06-18] MEDS: Sacubitril 24MG/Valsartan 26 MG TAB PO SCH (21:12)
[2024-06-19 04:47] LABS: #Basophils Less than 0.03 10x3/uL (0.0-0.2); %Basophils 0.1 % (0.0-1.0); %Eosinophils 0.5 % (0.0-10.0); %Lymphocytes 7.6 % (21.0-51.0); %Monocytes 10.7 % (0.0-10.0); %Neutrophils 77.9 % (42.0-75.0); Hematocrit 26.2 % (42.0-52.0); Hemoglobin 8.2 g/dL (14.0-18.0); Mean Corpuscular HGB CONC 31.3 g/dL (32.0-36.0); Mean Platelet Volume 11.4 fL (7.4-10.4); Platelet Count 327 10x3/uL (130-400); Red Blood Cell (RBC) Count 2.34 mill/uL (4.70-6.10)
[2024-06-19 05:01] LABS: Anion Gap 12 mmol/L (10-20); BUN (Urea Nitrogen) 28 mg/dL (8.4-25.7); Calc. Creatinine Clearance 55 mL/min (70-130); Calcium 8.5 mg/dL (7.8-10.44); Carbon Dioxide 18 mmol/L (23-31); Chloride 107 mmol/L (98-107); Estimated GFR 42; Glucose 121 mg/dL (83-110); Potassium 4.3 mmol/L (3.5-5.1); Sodium 133 mmol/L (136-145)
[2024-06-19] MEDS: Empagliflozin 10 MG TAB PO SCH (08:28)
[2024-06-19 12:49] VITALS: BP 99/67; TEMP 98.3
[2024-06-20] MEDS ORDERED: Torsemide 10 MG TAB PO SCH (09:00)
== END 2024-06-19 17:00 | disposition home or self-care (01) | DRG 291 ==
LOC: ERS 18:57 → OBS 06-17 00:15 → ERHOLD 06-17 00:16 → OBS 06-17 14:40 → MSONC 06-17 14:44 → OBS 06-17 14:47 → OBSVTOIN 06-18 15:37
PROVIDERS: ADMIT Internal Medicine; ATTEND Internal Medicine
DX: I13.0 Hypertensive heart and chronic kidney disease with heart failure and stage 1 through stage 4 chronic kidney disease, or unspecified chronic kidney disease (principal); I50.23 Acute on chronic systolic (congestive) heart failure; N17.9 Acute kidney failure, unspecified; E11.22 Type 2 diabetes mellitus with diabetic chronic kidney disease; I25.10 Atherosclerotic heart disease of native coronary artery without angina pectoris; I25.5 Ischemic cardiomyopathy; D63.1 Anemia in chronic kidney disease; N18.30 Chronic kidney disease, stage 3 unspecified; I48.91 Unspecified atrial fibrillation; Z96.652 Presence of left artificial knee joint; Z95.810 Presence of automatic (implantable) cardiac defibrillator; Z95.1 Presence of aortocoronary bypass graft; Z90.49 Acquired absence of other specified parts of digestive tract; Z88.0 Allergy status to penicillin; Z88.5 Allergy status to narcotic agent
CPT/HCPCS: 36415; 36416; 71045; 71275; 80048; 80053; 80202; 81001; 83605; 83690; 83735; 83880; 84484; 85025; 85610; 85730; 87040; 87086; 87428; 93005; 94760; 96365; 96366; 96367; J0692; J1644; J3370; Q9967